=== PATIENT | female | born 1995 | race Two or more races ===

== ENCOUNTER 2017-10-29 01:41 | Outpatient (CLI) | payer OTHER | END 2017-10-29 11:23 | disposition home or self-care (01) | LOC: OBS/DEL 01:41 | DX: O46.8X3 Other antepartum hemorrhage, third trimester (principal); Z34.03 Encounter for supervision of normal first pregnancy, third trimester ==

== ENCOUNTER 2017-12-06 17:38 | Inpatient (IN) | payer OTHER ==
[~2017-12-06] VITALS: Ht 147.3 cm; Wt 1.8 kg
[2017-12-06] MEDS ORDERED: PRENATAL TABLE1 EAC1 PO (19:16)
== END 2017-12-11 16:40 | DRG 765 ==
LOC: LDR 17:38 → OB/GYN 17:38 → LDR 21:27 → OB/GYN 12-08 14:22
PROVIDERS: Obstetrics & Gynecology
PROC: 4A1HXCZ Monitoring of Products of Conception, Cardiac Rate, External Approach (ICD-10-PCS; 2017-12-06)
PROC: BY4FZZZ Ultrasonography of Third Trimester, Single Fetus (ICD-10-PCS; 2017-12-06)
PROC: 4A033R1 Measurement of Arterial Saturation, Peripheral, Percutaneous Approach (ICD-10-PCS; 2017-12-06)
PROC: 10D00Z1 Extraction of Products of Conception, Low, Open Approach (ICD-10-PCS; principal; 2017-12-06 20:00)
DX: O36.5930 Maternal care for other known or suspected poor fetal growth, third trimester, not applicable or unspecified (principal); O14.13 Severe pre-eclampsia, third trimester; O60.14X0 Preterm labor third trimester with preterm delivery third trimester, not applicable or unspecified; Z37.0 Single live birth; Z3A.36 36 weeks gestation of pregnancy

== ENCOUNTER 2017-12-19 07:51 | Emergency (ER) | payer OTHER ==
[~2017-12-19] VITALS: Ht 147.3 cm; Wt 47.6 kg
[~2017-12-19 07:51] MED LIST: PRENATAL TABLE1 EAC1 PO
== END 2017-12-19 09:48 | disposition home or self-care (01) ==
LOC: ER 07:51
DX: S20.211A Contusion of right front wall of thorax, initial encounter (principal); M94.0 Chondrocostal junction syndrome [Tietze]; V49.9XXA Car occupant (driver) (passenger) injured in unspecified traffic accident, initial encounter; Y93.89 Activity, other specified; Y92.488 Other paved roadways as the place of occurrence of the external cause; Y99.8 Other external cause status

== ENCOUNTER 2018-10-26 12:10 | Emergency (ER) | payer OTHER ==
[~2018-10-26] VITALS: Ht 147.3 cm; Wt 43.1 kg
== END 2018-10-26 13:46 | disposition home or self-care (01) ==
LOC: ER 12:10
DX: S70.11XA Contusion of right thigh, initial encounter (principal); V49.9XXA Car occupant (driver) (passenger) injured in unspecified traffic accident, initial encounter; Y93.89 Activity, other specified; Y92.488 Other paved roadways as the place of occurrence of the external cause; Y99.8 Other external cause status

== ENCOUNTER → 2023-04-06 | Emergency (ER) | payer OTHER ==
[~2023-04-06] VITALS: Ht 147.3 cm; Wt 47.2 kg
== END | disposition left against medical advice (07) ==
LOC: ER 19:23
DX: Z53.21 Procedure and treatment not carried out due to patient leaving prior to being seen by health care provider (principal)

== ENCOUNTER → 2023-06-01 15:50 | Outpatient (CLI) | payer OTHER | END | disposition home or self-care (01) | LOC: PRENATAL 15:50 | PROVIDERS: ATTEND Obstetrics & Gynecology Maternal & Fetal Medicine | DX: O35.3XX0 Maternal care for (suspected) damage to fetus from viral disease in mother, not applicable or unspecified (principal); O44.00 Complete placenta previa NOS or without hemorrhage, unspecified trimester; O34.219 Maternal care for unspecified type scar from previous cesarean delivery; O14.90 Unspecified pre-eclampsia, unspecified trimester; Z3A.19 19 weeks gestation of pregnancy ==

== ENCOUNTER 2023-09-28 14:02 | Outpatient (CLI) | payer OTHER | END 2023-09-28 14:03 | disposition home or self-care (01) | LOC: PRENATAL 14:02 | PROVIDERS: ATTEND Obstetrics & Gynecology Maternal & Fetal Medicine | DX: O26.843 Uterine size-date discrepancy, third trimester (principal); O36.8130 Decreased fetal movements, third trimester, not applicable or unspecified; O34.219 Maternal care for unspecified type scar from previous cesarean delivery; O14.93 Unspecified pre-eclampsia, third trimester; Z3A.36 36 weeks gestation of pregnancy ==

== ENCOUNTER → 2023-10-12 09:24 | Outpatient (CLI) | payer OTHER | END | disposition home or self-care (01) | LOC: PRENATAL 09:24 | PROVIDERS: ATTEND Obstetrics & Gynecology Maternal & Fetal Medicine | DX: O26.843 Uterine size-date discrepancy, third trimester (principal); O36.5930 Maternal care for other known or suspected poor fetal growth, third trimester, not applicable or unspecified; O36.8130 Decreased fetal movements, third trimester, not applicable or unspecified; Z3A.38 38 weeks gestation of pregnancy ==

== ENCOUNTER 2023-10-19 10:48 | Inpatient (IN) | payer OTHER ==
[~2023-10-19] VITALS: Ht 147.3 cm; Wt 59.4 kg
[2023-10-19] MEDS ORDERED: RINGERS SOLUTION,LACTATED 1,000 ML IV SCH ×2 (11:00→19:15)
[2023-10-19 11:54] LABS: HEMATOCRIT 36.8 % (36.0-45.00); HEMOGLOBIN 12.5 g/dL (12.0-15.00); MEAN CORPUSCULAR HEMOGLOBIN 29.1 pg (27.00-32.0); MEAN CORPUSCULAR HGB CONC 33.9 g/dl (32.0-36.0); RED BLOOD COUNT 4.28 M/uL (4.00-6.00); RED CELL DISTRIBUTION WIDTH 14.6 % (11.5-14.5); URINE APPEARANCE Clear; URINE BACTERIA 1836.9 uL (0.0-1933); URINE BILIRRUBIN Negative (NEGATIVE); URINE COLOR Yellow; URINE EPITHELIAL CELLS 46.8 uL (0.0-38.8); URINE GLUCOSE Negative (NEGATIVE); URINE KETONE Negative (NEGATIVE); URINE LEUKOCYTE Trace; URINE NITRATE Negative; URINE PROTEIN Negative (NEGATIVE); URINE RBC 9.9 uL (0.0-20.8)
[2023-10-19 12:00] LABS: URINE BLOOD Trace
[2023-10-19 12:11] LABS: PLATELET COUNT 131 K/uL (150-450)
[2023-10-19 12:25] LABS: INR < 0.93; PARTIAL THROMBOPLASTIN TIME 27.8 SECONDS (22.0-34.0); PROTHROMBIN TIME 9.5 SECONDS (9.0-11.5)
[2023-10-19] MEDS ORDERED: CHILDREN'S ASPI81 MG PO (12:46)
[2023-10-19] MEDS ORDERED: PRENATAL CAPLE1 EAC1 PO (12:46)
[2023-10-19] MEDS ORDERED: CEFOXITIN SODIUM 2,000 MG VIAL IV SCH (13:30)
[2023-10-19] MEDS ORDERED: ERYTHROMYCIN BASE 1 GM TUBE OP ONE (15:00)
[2023-10-19] MEDS ORDERED: OXYTOCIN 10 UNITS/ML VIAL IV ONE (15:00)
[2023-10-19] MEDS ORDERED: KETOROLAC TROMETHAMINE 60 MG VIAL IM STA (19:05)
[2023-10-19] MEDS ORDERED: OXYTOCIN 1,000 ML IV SCH (19:15)
[2023-10-19] MEDS ORDERED: ERYTHROMYCIN BASE 1 GM TUBE OP SCH (19:15)
[2023-10-19] MEDS ORDERED: CHLORHEXIDINE GLUCONATE 120 ML BOTTLE TOP SCH (19:15)
[2023-10-19] MEDS ORDERED: MEPERIDINE HCL/PF 50 MG/ML VIAL IM PRN (19:15)
[2023-10-19] MEDS ORDERED: PROMETHAZINE HCL 25 MG/ML AMPUL IM PRN (19:15)
[2023-10-19 20:44] LABS: HEMATOCRIT 35.9 % (36.0-45.00); HEMOGLOBIN 12.2 g/dL (12.0-15.00); MEAN CELL VOLUME 86.1 fL (80.00-100.00); MEAN CORPUSCULAR HEMOGLOBIN 29.2 pg (27.00-32.0); MEAN CORPUSCULAR HGB CONC 33.9 g/dl (32.0-36.0); PLATELET COUNT 145 K/uL (150-450); RED BLOOD COUNT 4.17 M/uL (4.00-6.00); RED CELL DISTRIBUTION WIDTH 14.1 % (11.5-14.5)
[2023-10-20] MEDS ORDERED: OxyCODONE HCL/APAP UD (PERCOCET) PO PRN (09:00)
[2023-10-20] MEDS ORDERED: FF) RHO(D) IMMUNE GLOBULIN (POM) IM NR (21:15)
== END 2023-10-21 16:14 | disposition home or self-care (01) | DRG 788 ==
LOC: LDR 10:48 → O/R 17:15 → OB/GYN 18:40
PROVIDERS: ADMIT Obstetrics & Gynecology; ATTEND Obstetrics & Gynecology
PROC: 4A1HXCZ Monitoring of Products of Conception, Cardiac Rate, External Approach (ICD-10-PCS; 2023-10-19)
PROC: 10D00Z1 Extraction of Products of Conception, Low, Open Approach (ICD-10-PCS; principal; 2023-10-19 14:15)
DX: O34.211 Maternal care for low transverse scar from previous cesarean delivery (principal); Z3A.39 39 weeks gestation of pregnancy; Z37.0 Single live birth; Z20.822 Contact with and (suspected) exposure to COVID-19